=== PATIENT | female | born 1985 | race Caucasian/White ===

== ENCOUNTER 2018-04-13 23:12 | Emergency (ER) | payer SELFPAY ==
--- OUTSIDE RECORDS SUMMARY | 2018-04-13 23:15 | XMS REPORT ---
:1985 [facility] Address [address] [place] [address] Dr. Lombardi. [address] [place] [address] Care Team Providers Name Role Phone Unavailable Unavailable Unavailable Problems This patient has no known problems. Allergies, Adverse Reactions, Alerts This patient has no known allergies or adverse reactions. Medications This patient has no known medications.
--- NOTE | 2018-04-13 23:27 | ER ---
Nurse's Notes [facility] Name: Marta Shetty Age: 32 yrs Sex: Female : 1985 Arrival Date: 04/13/2018 Time: 23:15 Bed 18 Private MD: Diagnosis: Situational syncope Presentation: 04/13 23:17 Presenting complaint: states: "She passed out while sitting and watching my jd3 family member have her blood drawn.". Transition of care: patient was not received from another setting of care. Onset of symptoms was April 13, 2018. Risk Assessment: Do you want to hurt yourself or someone else? Patient reports no desire to harm self or others. Initial Sepsis Screen: Does the patient meet any 2 criteria? No. Patient's initial sepsis screen is negative. Does the patient have a suspected source of infection? No. Patient's initial sepsis screen is negative. Care prior to arrival: None. 23:17 Method Of Arrival: Wheelchair j 23:17 Acuity: LIZZETTE 3 [facility] 23:17 Presenting complaint: Pt was witnessed to have a syncope episode while watching a jd3 family member having an IV placed with blood draw. pt was unresponsive for about 30 seconds. When pt woke up she was A\\T\\O X4 with even and unlabored respirations with pupils equal and reactive to light with PERRLA. pt also reporting nausea, but no pain. 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 - Social history:: Smoking status: Patient uses tobacco products, smokes one pack cigarettes per day. - Ebola Screening: : Patient negative for fever greater than or equal to 101.5 degrees Fahrenheit, and additional compatible Ebola Virus Disease symptoms. Screenin:24 Abuse screen: Denies threats or abuse. Nutritional screening: No deficits noted. jd3 Tuberculosis screening: No symptoms or risk factors identified. Fall Risk Ambulatory Aid- None/Bed Rest/Nurse Assist (0 pts). Gait- Weak (10 pts.). Mental Status- Oriented to own ability (0 pts). Total Weiner Fall Scale indicates No Risk (0-24 pts). Assessment: 23:23 General: Appears comfortable, Behavior is calm, cooperative, appropriate for age, jd3 drowsy. Pain: Denies pain. Neuro: Level of Consciousness is awake, alert, obeys commands, Oriented to person, place, time, situation, Appropriate for age Speech is normal, Pupils are PERRLA. Cardiovascular: Capillary refill < 3 seconds Patient's skin is warm and dry. Respiratory: Airway is patent Respiratory effort is even, unlabored, Respiratory pattern is regular, symmetrical. GI: Abdomen is round non-distended, Reports nausea, vomiting, Patient currently denies abdominal pain. : No signs and/or symptoms were reported regarding the genitourinary system. EENT: No signs and/or symptoms were reported regarding the EENT system. Derm: Skin is intact, Skin is dry, Skin is pale, Skin temperature is warm. Musculoskeletal: Circulation, motion, and sensation intact. Range of motion: intact in all extremities. Vital Signs: 23:19 BP 137 / 83; Pulse 93; Resp 18 S; Temp 98.5(O); Pulse Ox 96% on R/A; Weight 68.04 kg jd3 (R); Height 5 ft. 3 in. (160.02 cm) (R); Pain 0/10; 23:19 Body Mass Index 26.57 (68.04 kg, 160.02 cm) jd3 ED Course: 23:15 Patient arrived in ED. ds1 23:17 Celestino Melara MD is Attending Physician. ps1 23:17 Efrain Brown RN is Primary Nurse. jd3 23:18 Triage completed. jd3 23:20 Arm band placed on. jd3 23:25 Patient has correct armband on for positive identification. Bed in low position. Call j light in reach. Side rails up X 1. Adult w/ patient. 23:35 No provider procedures requiring assistance completed. Patient did not have IV access jd3 during this emergency room visit. Administered Medications: No medications were administered Outcome: 23:26 Discharge ordered by . ps1 23:35 Discharged to home ambulatory, with family. jd3 23:35 Condition: stable 23:35 Discharge instructions given to patient, family, Instructed on discharge instructions, follow up and referral plans. Demonstrated understanding of instructions, follow-up care. 23:36 Patient left the ED. jd3 Signatures: AngelBibii ds1 Efrain Brown RN RN jd3 Celestino Melara MD MD ps1 Corrections: (The following items were deleted from the chart) 23:23 23:17 Presenting complaint: Pt was witnessed to have a syncope episode while watching a jd3 family member having an IV placed with blood draw. pt was unresponsive for about 30 seconds. When pt woke up she was A\\T\\O X4 with even and unlabored respirations with pupils equal and reactive to light with PERRLA. jd3
--- NOTE | 2018-04-13 23:27 | EDPHYS ---
Physician Documentation [facility] Name: Marta Shetty Age: 32 yrs Sex: Female : 1985 Arrival Date: 04/13/2018 Time: 23:15 Bed 18 Private MD: ED Physician Celestino Melara HPI: 04/13 23:18 This 32 yrs old Female presents to ER via Unassigned with complaints of ps1 situational syncope. 23:18 patient was in room while family member was getting blood drawn. Went pale and had a ps1 syncopal event. Returned to normal shortly after event. No post ictal phase. . 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 - Social history:: Smoking status: Patient uses tobacco products, smokes one pack cigarettes per day. - Ebola Screening: : Patient negative for fever greater than or equal to 101.5 degrees Fahrenheit, and additional compatible Ebola Virus Disease symptoms. ROS: 23:18 Constitutional: Negative for fever, chills, and weight loss, Eyes: Negative for injury, ps1 pain, redness, and discharge, Cardiovascular: Negative for chest pain, palpitations, and edema, Respiratory: Negative for shortness of breath, cough, wheezing, and pleuritic chest pain, Abdomen/GI: Negative for abdominal pain, nausea, vomiting, diarrhea, and constipation, Skin: Negative for injury, rash, and discoloration. Exam: 23:18 Constitutional: This is a well developed, well nourished patient who is awake, alert, ps1 and in no acute distress. Head/Face: Normocephalic, atraumatic. Eyes: Pupils equal round and reactive to light, extra-ocular motions intact. Lids and lashes normal. Conjunctiva and sclera are non-icteric and not injected. Chest/axilla: Normal chest wall appearance and motion. Nontender with no deformity. No lesions are appreciated. Cardiovascular: Regular rate and rhythm. No gallops, murmurs, or rubs. Normal PMI, no JVD. No pulse deficits. Respiratory: Lungs have equal breath sounds bilaterally, clear to auscultation and percussion. No rales, rhonchi or wheezes noted. No increased work of breathing, no retractions or nasal flaring. Abdomen/GI: Soft, non-tender, with normal bowel sounds. No distension or tympany. No guarding or rebound. No evidence of tenderness throughout. MS/ Extremity: Pulses equal, no cyanosis. Neurovascular intact. Full, normal range of motion. Neuro: Awake and alert, GCS 15, oriented to person, place, time, and situation. Cranial nerves II-XII grossly intact. Sensory grossly intact. Vital Signs: 23:19 BP 137 / 83; Pulse 93; Resp 18 S; Temp 98.5(O); Pulse Ox 96% on R/A; Weight 68.04 kg jd3 (R); Height 5 ft. 3 in. (160.02 cm) (R); Pain 0/10; 23:19 Body Mass Index 26.57 (68.04 kg, 160.02 cm) jd3 MDM: 23:18 Data reviewed: vital signs, nurses notes, and as a result, I will discharge patient, ps1 patient had situational syncope. Returned to baseline. Stable for discharge. . 23:26 Patient medically screened. ps1 Administered Medications: No medications were administered Disposition: 18 23:26 Discharged to Home. Impression: Situational syncope. - Condition is Stable. - Discharge Instructions: Syncope. - Medication Reconciliation Form, Thank You Letter, Antibiotic Education, Prescription Opioid Use form. - Follow up: Private Physician; When: As needed; Reason: Recheck today's complaints, Continuance of care, Re-evaluation by your physician. Follow up: Emergency Department; When: As needed; Reason: Worsening of condition. Signatures: Efrain Brown RN RN jd3 Celestino Melara MD MD ps1 Corrections: (The following items were deleted from the chart) 23:36 23:26 04/13/2018 23:26 Discharged to Home. Impression: Situational syncope. Condition jd3 is Stable. Forms are Medication Reconciliation Form, Thank You Letter, Antibiotic Education, Prescription Opioid Use. Follow up: Private Physician; When: As needed; Reason: Recheck today's complaints, Continuance of care, Re-evaluation by your physician. Follow up: Emergency Department; When: As needed; Reason: Worsening of condition. ps1
[2018-04-13 23:43] VITALS: BP 137/83; TEMP 98.5; O2SAT 96
== END 2018-04-13 23:36 | disposition home or self-care (01) ==
LOC: ER 23:12
DX: R55 Syncope and collapse (principal); F17.210 Nicotine dependence, cigarettes, uncomplicated
CPT/HCPCS: 99281

== ENCOUNTER 2018-10-29 13:41 | Emergency (ER) | payer SELFPAY ==
--- OUTSIDE RECORDS SUMMARY | 2018-10-29 13:44 | XMS REPORT ---
:1985 Author Organization [facility] Address [address] [place] [address] Dr. Franks [address] [place] [id number] Care Team Providers Name Role Phone Unavailable Unavailable Unavailable Problems This patient has no known problems. Allergies, Adverse Reactions, Alerts This patient has no known allergies or adverse reactions. Medications This patient has no known medications.
--- NOTE | 2018-10-29 14:46 | RAD REPORT ---
EXAM DESCRIPTION: RAD - Chest Pa And Lat (2 Views) - 10/29/2018 2:38 pm CLINICAL HISTORY: Fall, left-sided chest trauma COMPARISON: November 2016 TECHNIQUE: PA and lateral views of the chest were obtained. FINDINGS: The lungs are clear. Heart size is normal and central vasculature is within normal limit s. No pleural effusion or pneumothorax seen. No acute bone finding. No gross evidence for a rib inj ury. As clinical findings warrant, dedicated rib films could be obtained for a more sensitive assessm ent. No aortic abnormality. IMPRESSION: No acute cardiopulmonary process.
--- NOTE | 2018-10-29 14:56 | RAD REPORT ---
EXAM DESCRIPTION: Ribs Right - 10/29/2018 2:44 pm CLINICAL HISTORY: Fall, right-sided rib trauma COMPARISON: None. FINDINGS: No displaced rib fracture is evident. No aggressive rib lesion. No underlying pneumothorax, effusion, infiltrate or pulmonary contusion. IMPRESSION: Negative right rib series.
--- NOTE | 2018-10-29 15:03 | EDPHYS ---
Physician Documentation [facility] Name: Marta Shetty Age: 32 yrs Sex: Female : 1985 Arrival Date: 10/29/2018 Time: 13:50 Bed 27 Private MD: ED Physician Wayne Husain HPI: 10/29 14:10 This 32 yrs old Female presents to ER via EMS with complaints of Fall Injury. rn 14:10 Details of fall: The patient fell from an upright position, while standing, while rn walking. Onset: The symptoms/episode began/occurred today. Associated injuries: The patient sustained injury to the chest, abrasion, contusion. Severity of symptoms: At their worst the symptoms were mild, in the emergency department the symptoms are unchanged. The patient has not experienced similar symptoms in the past. Reports at work, slipped, landed on floor, hit right posterior thorax, no LOC, scraped elbow but doesn't feel like is broken. Denies sob or pain with breathing. + tender to touch area. Slipped on wet surface.. 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 - Social history:: Smoking status: Patient uses tobacco products, denies chronic smoking, but will smoke occasionally. - Ebola Screening: : Patient negative for fever greater than or equal to 101.5 degrees Fahrenheit, and additional compatible Ebola Virus Disease symptoms Patient denies exposure to infectious person Patient denies travel to an Ebola-affected area in the 21 days before illness onset. - Family history:: not pertinent. - Hospitalizations: : No recent hospitalization is reported. ROS: 14:10 Constitutional: Negative for fever, chills, and weight loss, Eyes: Negative for injury, rn pain, redness, and discharge, Neck: Negative for injury, pain, and swelling, Cardiovascular: + right posterior lateral thoracic pain Respiratory: Negative for shortness of breath, cough, wheezing, and pleuritic chest pain, Abdomen/GI: Negative for abdominal pain, nausea, vomiting, diarrhea, and constipation, Back: Negative for injury and pain, : Negative for injury, bleeding, discharge, and swelling, MS/Extremity: Negative for injury and deformity, Skin: + abrasion to right elbow, + contusion right posterior-lateral chest wall Neuro: Negative for headache, weakness, numbness, tingling, and seizure. Exam: 14:10 Constitutional: This is a well developed, well nourished patient who is awake, alert, rn and in no acute distress. Head/Face: Normocephalic, atraumatic. Eyes: Pupils equal round and reactive to light, extra-ocular motions intact. Lids and lashes normal. Conjunctiva and sclera are non-icteric and not injected. Cornea within normal limits. Periorbital areas with no swelling, redness, or edema. Neck: Trachea midline, no thyromegaly or masses palpated, and no cervical lymphadenopathy. Supple, full range of motion without nuchal rigidity, or vertebral point tenderness. No Meningismus. Cardiovascular: Regular rate and rhythm with a normal S1 and S2. No gallops, murmurs, or rubs. Normal PMI, no JVD. No pulse deficits. Respiratory: Lungs have equal breath sounds bilaterally, clear to auscultation and percussion. No rales, rhonchi or wheezes noted. No increased work of breathing, no retractions or nasal flaring. Abdomen/GI: soft, non-tender Back: No spinal tenderness. + 4cm area of irregular contusion/ecchymosis with superficial abrasion right posterior-lateral thorax, no crepitus, no mobile segments. MS/ Extremity: Pulses equal, no cyanosis. Neurovascular intact. Full, normal range of motion. Equal circumference. Neuro: Awake and alert, GCS 15, oriented to person, place, time, and situation. Cranial nerves II-XII grossly intact. Motor strength 5/5 in all extremities. Sensory grossly intact. Cerebellar exam normal. Normal gait. Vital Signs: 13:53 BP 113 / 84; Pulse 89; Resp 16; Temp 98.6(O); Pulse Ox 96% on R/A; Weight 58.97 kg (R); ca1 Height 5 ft. 4 in. (162.56 cm); Pain 5/10; 14:49 BP 103 / 75; Pulse 82; Resp 16; Pulse Ox 99% on R/A; ca1 13:53 Body Mass Index 22.31 (58.97 kg, 162.56 cm) ca1 MDM: 13:51 Patient medically screened. rn 15:00 Differential diagnosis: abrasion, closed head injury, contusion, fracture. Data rn reviewed: radiologic studies, plain films. Test interpretation: by ED physician or midlevel provider: plain radiologic studies, Xray chest and rib series negative for acute fracture or pneumothorax. Counseling: I had a detailed discussion with the patient and/or guardian regarding: the historical points, exam findings, and any diagnostic results supporting the discharge/admit diagnosis, radiology results, the need for outpatient follow up, to return to the emergency department if symptoms worsen or persist or if there are any questions or concerns that arise at home. Response to treatment: the patient's symptoms have mildly improved after treatment. Special discussion: I discussed with the patient/guardian in detail that at this point there is no indication for admission to the hospital. It is understood, however, that if the symptoms persist or worsen the patient needs to return immediately for re-evaluation. 10/29 13:59 Order name: XRAY Ribs RIGHT; Complete Time: 14:59 rn 10/29 14:37 Order name: Chest Pa And Lat (2 Views); Complete Time: 14:59 EDMS Administered Medications: No medications were administered Disposition: 10/29/18 15:02 Discharged to Home. Impression: Contusion of right back wall of thorax. - Condition is Stable. - Discharge Instructions: Chest Contusion, Adult, Elbow Contusion. - Medication Reconciliation Form, Thank You Letter, Antibiotic Education, Prescription Opioid Use form. - Follow up: Private Physician; When: As needed; Reason: Recheck today's complaints, Re-evaluation by your physician. - Problem is new. - Symptoms have improved. Signatures: Dispatcher [employer] EDMS Wayne Husain MD MD rn Acob, NGUYEN Vázquez RN ca1 Corrections: (The following items were deleted from the chart) 14:12 14:10 Constitutional: Negative for fever, chills, and weight loss, Eyes: Negative for rn injury, pain, redness, and discharge, Neck: Negative for injury, pain, and swelling, Cardiovascular: + right posterior lateral thoracic pain Respiratory: Negative for shortness of breath, cough, wheezing, and pleuritic chest pain, Abdomen/GI: Negative for abdominal pain, nausea, vomiting, diarrhea, and constipation, Back: Negative for injury and pain, : Negative for injury, bleeding, discharge, and swelling, MS/Extremity: Negative for injury and deformity, Skin: Negative for injury, rash, and discoloration, Neuro: Negative for headache, weakness, numbness, tingling, and seizure, rn 14:37 13:59 Chest Single View+[id number].[email or web address] ordered. EDMS EDMS 15:18 15:02 10/29/2018 15:02 Discharged to Home. Impression: Contusion of right back wall of ca1 thorax. Condition is Stable. Forms are Medication Reconciliation Form, Thank You Letter, Antibiotic Education, Prescription Opioid Use. Follow up: Private Physician; When: As needed; Reason: Recheck today's complaints, Re-evaluation by your physician. Problem is new. Symptoms have improved. rn
--- NOTE | 2018-10-29 15:03 | ER ---
Nurse's Notes [facility] Name: Marta Shetty Age: 32 yrs Sex: Female : 1985 Arrival Date: 10/29/2018 Time: 13:50 Bed 27 Private MD: Diagnosis: Contusion of right back wall of thorax Presentation: 10/29 13:50 Presenting complaint: EMS states: pt fell at work today, landed on her R flank hitting ca1 a blunt object on the way down. Negative LOC, did NOT hit head. Scrape on R arm. Transition of care: patient was not received from another setting of care. Onset of symptoms was October 29, 2018. Risk Assessment: Do you want to hurt yourself or someone else? Patient reports no desire to harm self or others. Initial Sepsis Screen: Does the patient meet any 2 criteria? No. Patient's initial sepsis screen is negative. Does the patient have a suspected source of infection? No. Patient's initial sepsis screen is negative. Care prior to arrival: Glucose check: 106. 13:50 Method Of Arrival: EMS: [facility] ca1 13:50 Acuity: LIZZETTE 4 ca1 Triage Assessment: 13:53 General: Appears in no apparent distress. comfortable, Behavior is calm, cooperative, ca1 appropriate for age. Pain: Complains of pain in right mid back Pain does not radiate. Pain currently is 5 out of 10 on a pain scale. Pain began 30 min ago. 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 - Social history:: Smoking status: Patient uses tobacco products, denies chronic smoking, but will smoke occasionally. - Ebola Screening: : Patient negative for fever greater than or equal to 101.5 degrees Fahrenheit, and additional compatible Ebola Virus Disease symptoms Patient denies exposure to infectious person Patient denies travel to an Ebola-affected area in the 21 days before illness onset. - Family history:: not pertinent. - Hospitalizations: : No recent hospitalization is reported. Screenin:55 Abuse screen: Denies threats or abuse. Denies injuries from another. Nutritional ca1 screening: No deficits noted. Tuberculosis screening: No symptoms or risk factors identified. Fall Risk Fall in past 12 months (25 points). Assessment: 13:55 General: Appears in no apparent distress. comfortable, Behavior is calm, cooperative, ca1 appropriate for age. Pain: Complains of pain in back and right mid back Pain currently is 5 out of 10 on a pain scale. Pain began 30 min ago. Neuro: Level of Consciousness is awake, alert, obeys commands, Oriented to person, place, time, situation. Cardiovascular: Heart tones S1 S2 present Capillary refill < 3 seconds Patient's skin is warm and dry. Respiratory: Airway is patent Respiratory effort is even, unlabored, Respiratory pattern is regular, symmetrical, Breath sounds are clear bilaterally. GI: Abdomen is flat, non-distended, Bowel sounds present X 4 quads. Abd is soft and non tender X 4 quads. : No deficits noted. No signs and/or symptoms were reported regarding the genitourinary system. EENT: No deficits noted. No signs and/or symptoms were reported regarding the EENT system. Derm: Skin is intact, is healthy with good turgor, Skin is pink, warm \T\ dry. Musculoskeletal: Circulation, motion, and sensation intact. Capillary refill < 3 seconds, Range of motion: intact in all extremities. 14:49 Reassessment: Patient appears in no apparent distress at this time. Patient and/or ca1 family updated on plan of care and expected duration. Pain level reassessed. Patient is alert, oriented x 3, equal unlabored respirations, skin warm/dry/pink. 15:18 Reassessment: Patient appears in no apparent distress at this time. Patient is alert, ca1 oriented x 3, equal unlabored respirations, skin warm/dry/pink. Vital Signs: 13:53 BP 113 / 84; Pulse 89; Resp 16; Temp 98.6(O); Pulse Ox 96% on R/A; Weight 58.97 kg (R); ca1 Height 5 ft. 4 in. (162.56 cm); Pain 5/10; 14:49 BP 103 / 75; Pulse 82; Resp 16; Pulse Ox 99% on R/A; ca1 13:53 Body Mass Index 22.31 (58.97 kg, 162.56 cm) ca1 ED Course: 13:50 Patient arrived in ED. ca1 13:51 Wayne Husain MD is Attending Physician. rn 13:52 Triage completed. ca1 13:53 Arm band placed on right wrist. ca1 13:55 Patient has correct armband on for positive identification. Bed in low position. Call ca1 light in reach. Side rails up X 1. Pulse ox on. NIBP on. 13:55 No provider procedures requiring assistance completed. Patient did not have IV access ca1 during this emergency room visit. 14:25 Patient moved to radiology via wheelchair. mh1 14:25 Kathie Noonan, RN is Primary Nurse. ca1 14:37 XRAY Ribs RIGHT In Process Unspecified. EDMS 14:39 Chest Pa And Lat (2 Views) In Process Unspecified. EDMS Administered Medications: No medications were administered Outcome: 15:02 Discharge ordered by . rn 15:18 Discharged to home ambulatory, with significant other. ca1 15:18 Condition: stable 15:18 Discharge instructions given to patient, Instructed on discharge instructions, follow up and referral plans. Demonstrated understanding of instructions, follow-up care. 15:18 Patient left the ED. ca1 Signatures: Dispatcher [employer] EDMS Marce Silverman 1 Wayne Husain MD MD rn Acob, Cheryl, RN RN ca1
[2018-10-29 15:58] VITALS: BP 103/75; O2SAT 99
[2018-10-29 15:59] VITALS: TEMP 98.6
== END 2018-10-29 15:18 | disposition home or self-care (01) ==
LOC: ER 13:41
DX: S20.221A Contusion of right back wall of thorax, initial encounter (principal); W01.0XXA Fall on same level from slipping, tripping and stumbling without subsequent striking against object, initial encounter; Z72.0 Tobacco use
CPT/HCPCS: 71046; 99283

== ENCOUNTER 2021-10-12 17:08 | Emergency (ER) | payer SELFPAY ==
--- OUTSIDE RECORDS SUMMARY | 2021-10-12 17:12 | XMS REPORT | Continuity of Care Document ---
:1985 Author Organization [facility] t Address [facility] [address] [place] [address] Care Team Providers Name Role Phone Yasir Loo Attending Clinician Yasir JAMES Attending Clinician Unavailable Doctor Unassigned, Name Attending Clinician Unavailable Payers Payer Name Policy Type Policy Number Effective Date Expiration Date S ource Problems Condition Condition Condition Status Onset Resolution Last Treating Co mments Source Name Details Category Date Date Treatment Clinician Date Need for Need for Disease Active Unive rs prophylact prophylact 06-04 it y of ic ic 00:00: [place] vaccinatio vaccinatio 00 Me dical n and n and Branch inoculatio inoculatio n against n against influenza influenza ASCUS of ASCUS of Disease Active Unive rs cervix cervix 06-04 ity of with with 00:00: [place] negative negative 00 Medica l high risk high risk Bran ch HPV HPV Abnormal Abnormal Disease Active Unive rs glandular glandular 06-04 ity of Papanic[place] smear 00 Medica [place] of cervix of cervix Bran ch IUD check IUD check Disease Active Uni vers up up 05-28 ity of 00:00: [place] 00 Medical Branch Cervical Cervical Disease Active 2017-05 Overview: Un nichole high risk high risk 06-04 Awaiting it y of human human 00:00: on pap [place] papillomav papillomav 00 Smear Me dical irus (HPV) irus (HPV) results. Branch DNA test DNA test positive positive Encounter Encounter Disease Active 2017-05 Uni vers for for 06-03 ity of removal removal 00:00: [place] and and 00 Medical reinsertio reinsertio Br anch n of IUD n of IUD Poor Poor Disease Active 2017-05 [facility] [place] [facility] dental dental 06-03 ity of hygiene hygiene 00:00: [place] 00 [facility] Screening Screening Disease Active 2017-05 Uni vers examinatio examinatio 06-03 it y of n for STD n for STD [place] ([place]ually (sexually 00 [facility] transmitte transmitte Br anch d disease) d disease) Tobacco Tobacco Disease Active 2013-05 Univers use use 06-03 ity of disorder disorder 00:00: [place] 00 [facility] Allergies, Adverse Reactions, Alerts Allergy Allergy Status Severity Reaction(s) Onset Inactive Treating Comm ents Source Name Type Date Date Clinician NO KNOWN Drug Active [facility] [place] [facility] ALLERGIE Class ity of S [facility] Social History Social Habit Start Date Stop Date Quantity Comments Source Sex Assigned At Universit y [facility] [place] [facility] History of tobacco Cigarette Smoker University of use [facility] Exposure to Not sure [facility] SARS-CoV-2 (event) [facility] Cigarettes smoked 2020-01-27 2020-01-27 Univers ity of current (pack per 00:00:00 00:00:[address] [facility] ) - Reported Branch Cigarette 2020-01-27 2020-01-27 University of pack-years 00:00:00 00:00:00 [facility] Tobacco use and 2020-01-27 2020-01-27 Never used Universit y of exposure 00:00:00 00:00:00 [facility] Alcohol intake 2020-01-27 2020-01-27 Current University of 00:00:00 00:00:00 non-drinker of [facility] alcohol Branch (finding) Tobacco Comment 2019-06-04 2019-06-04 9.5 Universit y of 00:00:00 00:00:00 cigarretes/day, [place] Med ical cutting down to Branch Smoking Status Start Date Stop Date Source Current every day smoker 2020-01-27 00:00:00 Uni versity of [place] [facility] Medications Ordered Filled Start Stop Current Ordering Indication Dosage Frequency Signature Comments Components Source Medication Medication Date Date Medication? Clinician (SIG) Name Name ferrous 2019- No 325mg Take 325 Univ ers sulfate 325 01-26- mg by ity of mg (65 mg 21:04: 00:00 mouth [place] iron) 28 :00 daily. Medical tablet Branch ferrous 2019- No 325mg Take 325 Univ ers sulfate 325 01-26 mg by ity of mg (65 mg 21:04: 00:00 mouth [place] iron) 28 :00 daily. Medical tablet Branch ferrous 2017-05 Yes 325mg Take 325 Unive rs sulfate 325 1-27 mg by ity of mg (65 mg 22:28: mouth [place] iron) 58 daily. Medical tablet Branch ferrous 2017-05 Yes 325mg Take 325 Unive rs sulfate 325 1-27 mg by ity of mg (65 mg 22:28: mouth [place] iron) 58 daily. Medical tablet Branch ferrous 2017-05 Yes 325mg Take 325 Unive rs sulfate 325 1-27 mg by ity of mg (65 mg 22:28: mouth [place] iron) 58 daily. Medical tablet Branch ferrous 2017-05 Yes 325mg Take 325 Unive rs sulfate 325 1-27 mg by ity of mg (65 mg 22:28: mouth [place] iron) 58 daily. Medical tablet Branch ferrous 2017-05 Yes 325mg Take 325 Unive rs sulfate 325 1-27 mg by ity of mg (65 mg 22:28: mouth [place] iron) 58 daily. Medical tablet Branch ferrous 2017-05 Yes 325mg Take 325 Unive rs sulfate 325 1-27 mg by ity of mg (65 mg 22:28: mouth [place] iron) 58 daily. Medical tablet Branch ferrous 2017-05 Yes 325mg Take 325 Unive rs sulfate 325 1-27 mg by ity of mg (65 mg 22:28: mouth [place] iron) 58 daily. Medical tablet Branch Immunizations Ordered Filled Immunization Date Status Comments [facility] Immunization Name Name Influenza Virus 2019-06-04 Completed Universit y of Vaccine Quad .5 mL 00:00:00 [facility] IM 6+ MO Branch Influenza Virus 2019-06-04 Completed Universit y of Vaccine Quad .5 mL 00:00:00 [place] [facility] IM 6+ MO Branch Influenza Virus 2019-06-04 Completed Universit y of Vaccine Quad .5 mL 00:00:00 [place] [facility] IM 6+ MO Branch Influenza Virus 2019-06-04 Completed Universit y of Vaccine Quad .5 mL 00:00:00 [facility] IM 6+ MO Branch Influenza Virus 2019-06-04 Completed Universit y of Vaccine Quad .5 mL 00:00:00 [place] [facility] IM 6+ MO Branch Influenza Virus 2019-06-04 Completed Universit y of Vaccine Quad .5 mL 00:00:00 [facility] IM 6+ MO Branch Influenza Virus 2019-06-04 Completed Universit y of Vaccine Quad .5 mL 00:00:00 [facility] IM 6+ MO Branch Tdap 2013-02-08 Completed University of 00:00:00 [place] [facility] Tdap 2013-02-08 Completed University of 00:00:00 [place] [facility] Tdap 2013-02-08 Completed University of 00:00:00 [place] [facility] Tdap 2013-02-08 Completed University of 00:00:00 [place] [facility] Tdap 2013-02-08 Completed University of 00:00:00 [place] [facility] Tdap 2013-02-08 Completed University of 00:00:00 [place] [facility] Tdap 2013-02-08 Completed University of 00:00:00 [place] [facility] TDAP 2013-02-08 Completed University of 00:00:00 [place] [facility] TDAP 2013-02-08 Completed University of 00:00:00 [place] [facility] Rubella 2004-05-11 Completed University of 00:00:00 [facility] Branch Rubella 2004-05-11 Completed University of 00:00:00 [facility] Branch Rubella 2004-05-11 Completed University of 00:00:00 [place] [facility] Rubella 2004-05-11 Completed University of 00:00:00 [place] [facility] Rubella 2004-05-11 Completed University of 00:00:00 [place] [facility] Rubella 2004-05-11 Completed University of 00:00:00 [place] [facility] Rubella 2004-05-11 Completed University of 00:00:00 [place] [facility] Rubella 2004-05-11 Completed University of 00:00:00 [facility] Branch Rubella 2004-05-11 Completed University of 00:00:00 [facility] Vital Signs Vital Name Observation Time Observation Value Comments Source Systolic blood 2020-01-27 20:07:00 130 mm[Hg] Univer sity of pressure [facility] Diastolic blood 2020-01-27 20:07:00 80 mm[Hg] Unive rsity of pressure [facility] Heart rate 2020-01-27 20:07:00 95 /min [facility] Body temperature 2020-01-27 20:07:00 36.72 Jayla [facility] Respiratory rate 2020-01-27 20:07:00 16 /min [facility] Body height 2020-01-27 20:07:00 160 cm [facility] Body weight 2020-01-27 20:07:00 56.427 kg [facility] BMI 2020-01-27 20:07:00 22.04 kg/m2 [facility] Systolic blood 2019-06-04 21:42:00 107 mm[Hg] Univer sity of pressure [facility] Diastolic blood 2019-06-04 21:42:00 67 mm[Hg] Unive rsity of pressure [facility] Heart rate 2019-06-04 21:42:00 115 /min [facility] Body temperature 2019-06-04 21:42:00 36.67 Jayla [facility] 2019-06-04 21:42:00 16 /min [facility] Body height 2019-06-04 21:42:00 160 cm [facility] Body weight 2019-06-04 21:42:00 60.499 kg [facility] BMI 2019-06-04 21:42:00 23.63 kg/m2 [facility] Procedures Procedure Date / Time Performed Performing Clinician Sourc e FLU VACC ([id number]), 2019-06-04 22:11:24 Allie [facility] versity of [place] 6+ MONTHS, IM, QUAD Medical Bran ch ASSIGNMENT OF BENEFITS 2019-06-04 21:31:57 Doctor Unassigned, No [facility] Encounters Start End Encounter Admission Attending Care Care Encounter Source Date/Time Date/Time Type Type Clinicians Facility Department ID 2020-01-27 2020-01-27 Office Jacob TNEMILIO [id number] Univers 14:50:37 15:44:19 Visit Allie Cooley [employer] OPERATOR [id number] [facility] [id number] Raphael as MATERNAL [phone] Med ical & CHILD [address] [place] [address] 2020-01-27 2020-01-27 Outpatient Yasir JAMES [facility] [id number] Univers 15:00:00 15:00:00 ALLIE [id number] ity o f [facility] 2020-01-27 2020-01-27 Outpatient Yasir JAMES [facility] [id number] Univers 15:00:00 15:00:00 ALLIE jimenez [facility] 2019-06-06 2019-06-[address] 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 & CHILD [address] [place] [address] 2019-06-06 2019-06-[address] 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 [id number] Univers 15:33:41 16:33:54 Visit Allie Cooley WEIGH TANK OPERATOR [id number] ity of REGIONAL [id number] Raphael as MATERNAL [id number] [facility] & CHILD [address] [place] [address] 2019-06-04 2019-06-04 Orders Doctor NARAYAN [id number] Univers 00:00:00 00:00:00 Only Unassigned, ZENON [id number] ity of [place] [facility] [id number] Raphael as [phone] [address] 2019-05-22 2019-05-22 Patient Doctor TNEMILIO [id number] Univers 00:00:00 00:00:00 Secure Msg Unassigned, 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
[2021-10-12] MEDS ORDERED: NA CHLORIDE 0.9% 1,000 ML ONE (19:15)
[2021-10-12 19:28] LABS: Urine Blood Negative (Negative); Urine Glucose 2+ (Negative); Urine Protein Negative (Negative); Urine Specific Gravity 1.015 (1.005-1.030); Urine pH 5.5 (5.0-7.0)
[2021-10-12 19:41] LABS: Absolute Lymphocytes (CBC) 2.3 K/uL (0.7-4.9); Lymphocytes % 25.1 % (15.3-44.8); MPV 8.6 fL (7.6-11.3); RBC Red Blood Cell Count 4.74 M/uL (3.86-4.86)
[2021-10-12 20:46] LABS: Albumin 3.7 g/dL (3.4-5.0); Bilirubin Total 0.4 mg/dL (0.2-1.0); Potassium 3.7 mmol/L (3.5-5.1); Protein, Total 7.4 g/dL (6.4-8.2)
[2021-10-12 20:59] LABS: Urine Specific Gravity/Preg 1.015 (1.005-1.030)
--- NOTE | 2021-10-12 21:15 | RAD REPORT ---
EXAM DESCRIPTION: CT - Abdomen Pelvis W Contrast - 10/12/2021 9:01 pm CLINICAL HISTORY: Abdominal pain COMPARISON: none. TECHNIQUE: Computed axial tomography of the abdomen pelvis was obtained. 100 cc Isovue-300 was admin istered intravenously. Oral contrast was not requested which limits evaluation of bowel and appendix All CT scans are performed using dose optimization technique as appropriate and may include automated exposure control or mA/KV adjustment according to patient size. FINDINGS: The liver, spleen, pancreas, adrenal and left kidney appear unremarkable. 2.8 centimeter right renal cyst. There is no evidence of diverticulitis. Moderate amount stool within the colon. IUD in the uterus IMPRESSION: Moderate amount stool within the colon
--- NOTE | 2021-10-12 22:07 | ER ---
Nurse's Notes [facility] Name: Marta Shetty Age: 35 yrs Sex: Female : 1985 Arrival Date: 10/12/2021 Time: 17:10 Bed 14 Private MD: Diagnosis: Diabetes mellitus due to underlying condition with hyperglycemia;Constipation, unspecified Presentation: 10/12 17:16 Chief complaint: Patient states: Abd swelling with no BM for 4-5 days. Coronavirus ll1 screen: Vaccine status: Patient reports receiving the 2nd dose of the covid vaccine. Client denies travel out of the [place] in the last 14 days. At this time, the client does not indicate any symptoms associated with coronavirus-19. Ebola Screen: Patient denies travel to an Ebola-affected area in the 21 days before illness onset. Initial Sepsis Screen: Does the patient meet any 2 criteria? HR > 90 bpm. No. Patient's initial sepsis screen is negative. Does the patient have a suspected source of infection? Yes: Acute abdominal pain. Risk Assessment: Do you want to hurt yourself or someone else? Patient reports no desire to harm self or others. Onset of symptoms was October 07, 2021. 17:16 Method Of Arrival: Ambulatory ll1 17:16 Acuity: LIZZETTE 3 ll1 Historical: - Allergies: 17:18 No Known Allergies; ll1 - PMHx: 17:18 gestational diabetes; Diabetes mellitus; ll1 - PSHx: 17:18 section; ll1 - Immunization history:: Client reports receiving the 2nd dose of the Covid vaccine. - Social history:: Smoking status: Patient reports the use of cigarette tobacco products, denies chronic smoking, but will smoke occasionally, Reported history of juuling and/or vaping. Screenin:18 Abuse screen: Denies threats or abuse. Denies injuries from another. Nutritional lg3 screening: No deficits noted. Tuberculosis screening: No symptoms or risk factors identified. Fall Risk None identified. Assessment: 19:18 General: Appears in no apparent distress. comfortable, Behavior is calm, cooperative. lg3 Pain: Complains of pain in abdomen. Neuro: No deficits noted. Quiros Agitation-Sedation Scale (RASS): 0 - Alert and Calm Level of Consciousness is awake, alert, obeys commands, Oriented to person, place, time, situation. Cardiovascular: No deficits noted. Denies chest pain, shortness of breath, Capillary refill < 3 seconds Clubbing of nail beds is absent JVD is absent Patient's skin is warm and dry. Respiratory: No deficits noted. Airway is patent Trachea midline Respiratory effort is even, unlabored, Respiratory pattern is regular, symmetrical. GI: Abdomen is distended, Bowel sounds present X 4 quads. Abd is soft Abdomen is tender to palpation Reports lower abdominal pain, upper abdominal pain, constipation, cramping. : No deficits noted. No signs and/or symptoms were reported regarding the genitourinary system. EENT: No deficits noted. No signs and/or symptoms were reported regarding the EENT system. Derm: No deficits noted. No signs and/or symptoms reported regarding the dermatologic system. Skin is intact, is healthy with good turgor, Skin is dry, Skin temperature is warm. Musculoskeletal: No deficits noted. No signs and/or symptoms reported regarding the musculoskeletal system. Circulation, motion, and sensation intact. Range of motion: intact in all extremities. 20:26 Reassessment: Patient appears in no apparent distress at this time. No changes from lg3 previously documented assessment. Patient and/or family updated on plan of care and expected duration. Pain level reassessed. Patient is alert, oriented x 3, equal unlabored respirations, skin warm/dry/pink. 22:15 Reassessment: Patient appears in no apparent distress at this time. No changes from lg3 previously documented assessment. Patient and/or family updated on plan of care and expected duration. Pain level reassessed. Patient is alert, oriented x 3, equal unlabored respirations, skin warm/dry/pink. Vital Signs: 17:16 BP 134 / 84; Pulse 110; Resp 16; Temp 99.3; Pulse Ox 97% on R/A; Height 5 ft. 3 in. ll1 (160.02 cm); Pain 8/10; 19:18 BP 106 / 77; Pulse 94; Resp 17; Pulse Ox 100% on R/A; lg3 20:26 BP 103 / 78; Pulse 101; Resp 17; Pulse Ox 99% on R/A; lg3 22:15 BP 106 / 81; Pulse 91; Resp 18; Pulse Ox 99% on R/A; lg3 ED Course: 17:10 Patient arrived in ED. mr 17:11 Audra De La Paz FNP-C is PHCP. kb 17:11 Phong Newman DO is Attending Physician. kb 17:18 Triage completed. ll1 17:20 Arm band placed on. ll1 19:04 Rosey Vasquez, RN is Primary Nurse. lg3 19:18 Primary Nurse role handed off by Rosey Vasquez RN mw2 19:18 Patient has correct armband on for positive identification. Bed in low position. Call lg3 light in reach. Client placed on continuous cardiac and pulse oximetry monitoring. NIBP monitoring applied. Door closed. Noise minimized. Warm blanket given. Family accompanied patient. 19:18 CBC with Diff Sent. lg3 19:18 CMP Sent. lg3 19:18 Lipase Sent. lg3 19:18 Inserted saline lock: 20 gauge in right antecubital area, using aseptic technique. lg3 Blood collected. 19:21 Rosey Vasquez RN is Primary Nurse. lg3 19:40 PHCP role handed off by Audra De La Paz FNP-C cp 19:40 Lee Mcqueen PA is PHCP. cp 21:03 CT Abd/Pelvis - IV Contrast Only In Process Unspecified. EDMS 22:15 No provider procedures requiring assistance completed. IV discontinued, intact, lg3 bleeding controlled, No redness/swelling at site. Pressure dressing applied. Administered Medications: 19:17 Drug: NS 0.9% 1000 ml Route: IV; Rate: 1 bolus; Site: right antecubital; lg3 20:53 Follow up: Response: No adverse reaction; IV Status: Completed infusion; IV Intake: lg3 1000ml Medication: 19:18 VIS not applicable for this client. lg3 Intake: 20:53 IV: 1000ml; Total: 1000ml. lg3 Outcome: 22:06 Discharge ordered by . cp 22:15 Discharged to home ambulatory, with family. lg3 22:15 Condition: stable 22:15 Discharge instructions given to patient, Instructed on discharge instructions, Demonstrated understanding of instructions. 23:04 Patient left the ED. mw2 Signatures: Dispatcher [employer] EDMS Audra De La Paz FNP-C FNP-[place] Timmons mr Lee Mcqueen PA PA cp Klyie Davis mw2 Rosey Vasquez RN RN lg3 Javier, Lynsay, RN RN ll1
--- NOTE | 2021-10-12 22:07 | EDPHYS ---
Physician Documentation [facility] Name: Marta Shetty Age: 35 yrs Sex: Female : 1985 Arrival Date: 10/12/2021 Time: 17:10 Bed 14 Private MD: ED Physician Phong Newman HPI: 10/12 18:06 This 35 yrs old Female presents to ER via Ambulatory with complaints of Abdominal kb Swelling. 18:06 The patient presents with abdominal pain that is diffuse. Onset: The symptoms/episode kb began/occurred 4 day(s) ago. The symptoms do not radiate. Associated signs and symptoms: Pertinent positives: constipation. The symptoms are described as constant. Modifying factors: The symptoms are alleviated by nothing, the symptoms are aggravated by nothing. Severity of pain: At its worst the pain was moderate in the emergency department the pain is unchanged. The patient has not experienced similar symptoms in the past. The patient has been recently seen by a physician: the patient's primary care provider, earlier today, with similar presenting complaints, and was sent to the [facility] Emergency Department for further evaluation. Pt reports diffuse abd pain and distention for 4 days. States last BM was 4-5 days ago. Historical: - Allergies: 17:18 No Known Allergies; ll1 - PMHx: 17:18 gestational diabetes; Diabetes mellitus; ll1 - PSHx: 17:18 section; ll1 - Immunization history:: Client reports receiving the 2nd dose of the Covid vaccine. - Social history:: Smoking status: Patient reports the use of cigarette tobacco products, denies chronic smoking, but will smoke occasionally, Reported history of juuling and/or vaping. ROS: 18:07 Constitutional: Negative for fever, chills, and weight loss. kb 18:07 Abdomen/GI: Positive for abdominal pain, constipation, abdominal cramps, abdominal distension. 18:07 All other systems are negative. Exam: 18:07 Constitutional: This is a well developed, well nourished patient who is awake, alert, kb and in no acute distress. Head/Face: Normocephalic, atraumatic. ENT: Moist Mucous membranes Respiratory: Respirations even and unlabored. No increased work of breathing. Talking in full sentences Skin: Warm, dry with normal turgor. Normal color. MS/ Extremity: Pulses equal, no cyanosis. Neurovascular intact. Full, normal range of motion. Neuro: Awake and alert, GCS 15, oriented to person, place, time, and situation. Moves all extremities. Normal gait. 18:07 Abdomen/GI: Inspection: distension, that is moderate, Bowel sounds: diminished, in all quadrants, Palpation: soft, in all quadrants, mild abdominal tenderness, in all quadrants. Vital Signs: 17:16 BP 134 / 84; Pulse 110; Resp 16; Temp 99.3; Pulse Ox 97% on R/A; Height 5 ft. 3 in. ll1 (160.02 cm); Pain 8/10; 19:18 BP 106 / 77; Pulse 94; Resp 17; Pulse Ox 100% on R/A; lg3 20:26 BP 103 / 78; Pulse 101; Resp 17; Pulse Ox 99% on R/A; lg3 22:15 BP 106 / 81; Pulse 91; Resp 18; Pulse Ox 99% on R/A; lg3 MDM: 10/11 18:00 Differential diagnosis: bowel obstruction, non-specific abd pain, Pyelonephritis, cp Ureterolithiasis, urinary tract infection, diverticulitis, ileus, DKA. 10/12 17:22 Patient medically screened. kb 18:08 Data reviewed: vital signs, nurses notes. Data interpreted: Pulse oximetry: on room air kb is 97 %. Interpretation: normal. 19:47 Transition of care: After a detail discussion of the patient's case, care is kb transferred to Lee PAREKH. 22:05 Counseling: I had a detailed discussion with the patient and/or guardian regarding: the cp historical points, exam findings, and any diagnostic results supporting the discharge/admit diagnosis, lab results, radiology results, the need for outpatient follow up, a family practitioner, to return to the emergency department if symptoms worsen or persist or if there are any questions or concerns that arise at home. 22:05 Response to treatment: VSS, pain improved. Patient requesting discharge to home. 10/12 17:23 Order name: CBC with Diff; Complete Time: 21:46 kb 10/12 21:47 Interpretation: Reviewed. 10/12 17:23 Order name: CMP kb 10/12 21:47 Interpretation: Normal except: AST 9; GLOB 3.7; A/G 1.0; NA 131; CO2 16; ANION GAP cp 18.7; GLUC 425. 10/12 17:23 Order name: Lipase kb 10/12 19:29 Order name: Urine Dipstick-Ancillary; Complete Time: 19:38 EDMS 10/12 19:32 Order name: Urine --Ancillary (enter results); Complete Time: 21:46 mw2 10/12 20:09 Order name: Glucose, Ancillary Testing; Complete Time: 21:46 EDMS 10/12 21:47 Interpretation: Reviewed. cp 10/12 17:23 Order name: CT Abd/Pelvis - IV Contrast Only; Complete Time: 21:46 kb 10/12 17:23 Order name: IV Saline Lock; Complete Time: 19:18 kb 10/12 17:23 Order name: Labs collected and sent; Complete Time: 19:18 kb 10/12 17:23 Order name: Urine Dipstick-Ancillary (obtain specimen); Complete Time: 19:29 kb 10/12 17:23 Order name: Urine Test (obtain specimen); Complete Time: 19:29 kb 08 19:40 Order name: Accucheck Blood Glucose; Complete Time: 19:58 cp Administered Medications: 19:17 Drug: NS 0.9% 1000 ml Route: IV; Rate: 1 bolus; Site: right antecubital; lg3 20:53 Follow up: Response: No adverse reaction; IV Status: Completed infusion; IV Intake: lg3 1000ml Disposition: 22:23 Co-signature as Attending Physician, Phong TORREZ was immediately available on-site ms3 in the Emergency Department for consultation in the care of the patient. . Disposition Summary: 10/12/21 22:06 Discharge Ordered Location: Home cp Problem: new cp Symptoms: have improved cp Condition: Stable cp Diagnosis - Diabetes mellitus due to underlying condition with hyperglycemia cp - Constipation, unspecified cp Followup: cp - With: Private Physician - When: 1 - 2 days - Reason: Recheck today's complaints Discharge Instructions: - Discharge Summary Sheet cp - Constipation, Adult cp - Hyperglycemia cp - Form - Daily Diabetes Record cp - Blood Glucose Monitoring, Adult cp - Diabetes Mellitus and Nutrition, Adult cp Forms: - Medication Reconciliation Form cp - Thank You Letter cp - Antibiotic Education cp - Prescription Opioid Use cp Signatures: Dispatcher [employer] EDAudra Smith FNP-C FNP-Mine Lee Mcqueen PA PA cp Gibson, Lacie RN RN lg3 Erum Herrera RN RN ll1 Phong Newman DO DO ms3 Corrections: (The following items were deleted from the chart) 22:08 22:06 Patient's other noncompliance with medication regimen [facility] 22:11 21:49 Accucheck Blood Glucose ordered. lg3
[2021-10-12 23:29] VITALS: TEMP 99.3
[2021-10-12 23:34] VITALS: O2SAT 99
[2021-10-12 23:36] VITALS: BP 106/81
== END 2021-10-12 23:04 | disposition home or self-care (01) ==
LOC: ER 17:08
DX: K59.00 Constipation, unspecified (principal); E08.65 Diabetes mellitus due to underlying condition with hyperglycemia; Z72.0 Tobacco use
CPT/HCPCS: 36415; 74177; 80053; 81003; 81025; 82947; 83690; 85025; 96360; 96361; 99284; J7030; Q9967